=== PATIENT | male | born 1985 | race American Indian/Alaskan Native ===

== ENCOUNTER 2017-01-14 12:59 | Emergency (ER) | payer MEDICAID ==
[~2017-01-14] VITALS: Ht 182.9 cm; Wt 100.0 kg
[2017-01-14] MEDS ORDERED: ONDANSETRON 2MG/ML, 2ML IVPush ONE (14:00)
[2017-01-14] MEDS ORDERED: SODIUM CHLORIDE FLUSH 10ML SYR IVF ONE (14:00)
[2017-01-14] MEDS ORDERED: MORPHINE SULFATE 4 MG/ML, 1ML IVPush PRN (14:00)
[2017-01-14] MEDS ORDERED: KETOROLAC 30 MG/1 ML IVPush ONE (14:00)
[2017-01-14] MEDS ORDERED: SODIUM CHLORIDE 0.9% 1,000ML IVBOLUS ONE (14:00)
[2017-01-14] MEDS ORDERED: KETOROLAC 30 MG/1 ML ONE (14:01)
[2017-01-14] MEDS ORDERED: ONDANSETRON 2MG/ML, 2ML ONE (14:01)
[2017-01-14 14:27] LABS: HEMOGLOBIN 17.1 g/dL (13.7-18.0)
[2017-01-14 14:37] LABS: BLOOD UREA NITROGEN 9 mg/dL (7-18)
[2017-01-14 16:39] LABS: DAU SCREEN DISCLAIMER
[2017-01-14 17:00] VITALS: BP 113/71
== END 2017-01-14 18:46 | disposition home or self-care (01) ==
LOC: ED 13:43
DX: M13.172 Monoarthritis, not elsewhere classified, left ankle and foot (principal); F15.229 Other stimulant dependence with intoxication, unspecified; L03.211 Cellulitis of face; E11.9 Type 2 diabetes mellitus without complications; E87.1 Hypo-osmolality and hyponatremia; M10.9 Gout, unspecified
CPT/HCPCS: 36415; 80048; 80307; 82040; 82550; 82553; 83605; 85025; 87040; 96361; 96374; 96375; 99284; J1885; J2405; J7030

== ENCOUNTER 2017-03-16 09:49 | Emergency (ER) | payer MEDICAID ==
[~2017-03-16] VITALS: Ht 182.9 cm; Wt 107.0 kg
[~2017-03-16 09:49] MED LIST: DICL50TA4 PO
[2017-03-16] MEDS ORDERED: HYDROcodone/APAP 5/325 TABLET ONE ×2 (10:25→11:21)
[2017-03-16] MEDS ORDERED: KETOROLAC 30 MG/1 ML ONE (10:25)
[2017-03-16] MEDS ORDERED: HYDROcodone/APAP 5/325 TABLET PO ONE ×2 (10:30→11:30)
[2017-03-16] MEDS ORDERED: KETOROLAC 30 MG/1 ML IM ONE (10:30)
[2017-03-16] MEDS ORDERED: LIDOCAINE 1%, 20ML INFIL ONE (12:00)
[2017-03-16] MEDS ORDERED: LIDOCAINE 1%, 20ML ONE (12:07)
[2017-03-16 13:07] VITALS: BP 132/86
== END 2017-03-16 13:16 | disposition home or self-care (01) ==
LOC: ED 13:10
DX: M1A.0620 Idiopathic chronic gout, left knee, without tophus (tophi) (principal); M13.162 Monoarthritis, not elsewhere classified, left knee; E11.9 Type 2 diabetes mellitus without complications
CPT/HCPCS: 20610; 36415; 73564; 84550; 85025; 96372; 99285; J1885

== ENCOUNTER 2017-04-28 10:28 | Emergency (ER) | payer MEDICAID ==
[~2017-04-28] VITALS: Ht 182.9 cm; Wt 108.6 kg
[2017-04-28] MEDS ORDERED: DICLOFENAC 50 MG TABLET.DR PO ONE (11:12)
[2017-04-28] MEDS ORDERED: LIDOCAINE 1%, 20ML ONE (11:38)
[2017-04-28] MEDS ORDERED: LIDOCAINE 1%-EPI 1:100K, 20ML INFIL ONE (12:00)
[2017-04-28 12:45] VITALS: BP 139/82
== END 2017-04-28 12:54 | disposition home or self-care (01) ==
LOC: ED 11:31
DX: M10.9 Gout, unspecified (principal); M25.562 Pain in left knee; Z88.6 Allergy status to analgesic agent; Z88.2 Allergy status to sulfonamides
CPT/HCPCS: 20610

== ENCOUNTER 2017-05-10 23:58 | Emergency (ER) | payer MEDICAID ==
[~2017-05-10] VITALS: Ht 182.9 cm; Wt 107.4 kg
[2017-05-11] MEDS ORDERED: KETOROLAC 30 MG/1 ML IM ONE (00:30)
[2017-05-11] MEDS ORDERED: COLCHICINE 0.6 MG TABLET PO ONE ×2 (00:30→01:30)
[2017-05-11] MEDS ORDERED: KETOROLAC 30 MG/1 ML ONE (00:37)
[2017-05-11 02:10] VITALS: BP 123/80
== END 2017-05-11 03:00 | disposition home or self-care (01) ==
LOC: ED 23:59
DX: M13.0 Polyarthritis, unspecified (principal); M10.9 Gout, unspecified; M25.561 Pain in right knee; M25.562 Pain in left knee; M25.572 Pain in left ankle and joints of left foot; M25.571 Pain in right ankle and joints of right foot; E11.9 Type 2 diabetes mellitus without complications; E87.1 Hypo-osmolality and hyponatremia; Z88.1 Allergy status to other antibiotic agents; Z88.8 Allergy status to other drugs, medicaments and biological substances
CPT/HCPCS: 96372; 99283; J1885

== ENCOUNTER 2017-12-03 23:19 | Emergency (ER) | payer MEDICAID ==
[~2017-12-03] VITALS: Ht 182.9 cm; Wt 113.0 kg
[~2017-12-03 23:19] MED LIST changes: +COLC0.6T37 PO
[2017-12-03 23:21] VITALS: BP 158/115
[2017-12-04] MEDS ORDERED: LIDOCAINE-MPF 1%, 5ML INFIL ONE (00:30)
[2017-12-04] MEDS ORDERED: LIDOCAINE-MPF 1%, 2ML ONE (01:13)
[2017-12-04] MEDS ORDERED: BACITRACIN ZINC OINT 500U/GM, 0.9 GM ONE (02:19)
== END 2017-12-04 02:30 | disposition home or self-care (01) ==
LOC: ED 23:58
DX: S61.214A Laceration without foreign body of right ring finger without damage to nail, initial encounter (principal); W25.XXXA Contact with sharp glass, initial encounter; Y93.89 Activity, other specified; Y92.89 Other specified places as the place of occurrence of the external cause; Y99.8 Other external cause status
CPT/HCPCS: 12002; 29130; 99283

== ENCOUNTER 2018-07-03 14:35 | Emergency (ER) | payer MEDICAID ==
[~2018-07-03] VITALS: Ht 182.9 cm; Wt 106.3 kg
[2018-07-03 14:58] LABS: BASOPHILS # (AUTO) 0.05 x10^3/uL (0-0.1); BASOPHILS % (AUTO) 1 % (0-1); EOSINOPHILS # (AUTO) 0.16 x10^3/uL (0-0.4); EOSINOPHILS % (AUTO) 2 % (1-7); LYMPHOCYTES # (AUTO) 1.46 x10^3/uL (1-3.4); LYMPHOCYTES % (AUTO) 19 % (22-44); MD NO; MEAN CORPUSCULAR HEMOGLOBIN 30.6 pg (27.5-34.5); MEAN CORPUSCULAR HGB CONC 33.8 g/dL (33.2-36.2); MEAN CORPUSCULAR VOLUME 90.7 fL (81-97); MEAN PLATELET VOLUME 8.4 fL (7.4-10.4); MONOCYTES # (AUTO) 0.61 x10^3/uL (0.2-0.8); MONOCYTES % (AUTO) 8 % (2-9); NEUTROPHILS # (AUTO) 5.59 x10^3/uL (1.8-6.8); NEUTROPHILS % (AUTO) 71 % (42-75); PLATELET COUNT 243 x10^3/uL (130-400); RED BLOOD COUNT 5.62 x10^6/uL (4.38-5.82); RED CELL DISTRIBUTION WIDTH 13.2 % (9.4-14.8)
[2018-07-03] MEDS ORDERED: ONDANSETRON ODT 8 MG PO ONE (15:00)
[2018-07-03] MEDS ORDERED: SODIUM CHLORIDE 0.9% 1,000ML IVBOLUS ONE (15:00)
[2018-07-03 15:08] LABS: ALBUMIN 3.7 g/dL (3.4-5.0); ANION GAP 9 mmol/L (5-15); CALCIUM 9.2 mg/dL (8.5-10.1); CHLORIDE 104 mmol/L (98-107)
[2018-07-03 15:11] LABS: ALANINE AMINOTRANSFERASE 37 U/L (12-78); ALKALINE PHOSPHATASE 61 U/L (45-117); BILIRUBIN,TOTAL 0.3 mg/dL (0.2-1.0); CREATININE 1.03 mg/dL (0.7-1.3); TOTAL PROTEIN 8.3 g/dL (6.4-8.2)
[2018-07-03] MEDS ORDERED: ONDANSETRON ODT 8 MG ONE (15:16)
[2018-07-03 16:13] LABS: MICROSCOPIC NOT IND
[2018-07-03 16:19] LABS: CULTURE INDICATED? NO
[2018-07-03 17:21] VITALS: BP 119/88
== END 2018-07-03 17:25 | disposition home or self-care (01) ==
LOC: ED 16:26
DX: I80.02 Phlebitis and thrombophlebitis of superficial vessels of left lower extremity (principal); R11.2 Nausea with vomiting, unspecified; R19.7 Diarrhea, unspecified; R10.9 Unspecified abdominal pain; M10.9 Gout, unspecified; E11.9 Type 2 diabetes mellitus without complications; M19.90 Unspecified osteoarthritis, unspecified site
CPT/HCPCS: 36415; 80053; 81003; 83690; 85025; 93971; 96360; 99285; J7030; Q0162

== ENCOUNTER 2018-08-26 10:09 | Observation (INO) | payer MEDICAID ==
[~2018-08-26] VITALS: Ht 182.9 cm; Wt 108.8 kg
[2018-08-26] MEDS ORDERED: ALBUTEROL/IPRATROPIUM 2.5MG/0.5MG, 3 ML ONE ×2 (11:26→12:42)
[2018-08-26] MEDS ORDERED: ALBUTEROL/IPRATROPIUM 2.5MG/0.5MG, 3 ML NPPB ONE (11:30)
[2018-08-26 11:38] LABS: MEAN CORPUSCULAR HGB CONC 33.2 g/dL (33.2-36.2); MEAN CORPUSCULAR VOLUME 90.5 fL (81-97); MEAN PLATELET VOLUME 8.8 fL (7.4-10.4); PLATELET COUNT 283 x10^3/uL (130-400); RED BLOOD COUNT 5.09 x10^6/uL (4.38-5.82); RED CELL DISTRIBUTION WIDTH 12.9 % (9.4-14.8)
[2018-08-26 11:39] LABS: ALBUMIN 3.4 g/dL (3.4-5.0); ANION GAP 4 mmol/L (5-15); CALCIUM 8.7 mg/dL (8.5-10.1); CHLORIDE 106 mmol/L (98-107); CREATININE 0.96 mg/dL (0.7-1.3)
[2018-08-26 12:09] LABS: MD YES
[2018-08-26 12:12] LABS: BAND#(MANUAL) 0.27 x10^3/uL; BANDS%(MANUAL) 2 % (0-7); EOS#(MANUAL) 0.68 x10^3/uL (0.0-0.4); EOS% (MANUAL) 5 % (1-7); LYMPH#(MANUAL) 1.63 x10^3/uL (1-3.4); LYMPHS% (MANUAL) 12 % (22-44); MONOS#(MANUAL) 1.22 x10^3/uL (0.3-2.7); MONOS% (MANUAL) 9 % (2-9); SEG#(MANUAL) 9.79 x10^3/uL (1.8-6.8); SEGS% (MANUAL) 72 % (42-75)
[2018-08-26 12:13] LABS: <PLATELET ESTIMATE> ADEQUATE; <PLT MORPHOLOGY> NORMAL PLT MORPH; <RBC MORPHOLOGY> NORMAL
[2018-08-26] MEDS ORDERED: ALBUTEROL SULFATE 2.5 MG/3 ML NPPB SCH (12:30)
[2018-08-26] MEDS ORDERED: BENZONATATE 100 MG CAPSULE PO ONE (12:30)
[2018-08-26] MEDS ORDERED: CEFTRIAXONE PMX 1GM/50ML 50 ML ONE (12:50)
[2018-08-26] MEDS ORDERED: BENZONATATE 100 MG CAPSULE ONE (12:50)
[2018-08-26] MEDS ORDERED: AZITHROMYCIN 500 MG in SODIUM CHLORIDE 0.9% 250 ML IVPB ONE (13:00)
[2018-08-26] MEDS ORDERED: SODIUM CHLORIDE FLUSH 10ML SYR IVF ONE (13:00)
[2018-08-26] MEDS ORDERED: CEFTRIAXONE 1,000 MG in SODIUM CHLORIDE 0.9% 50 ML IVPB ONE (13:00)
[2018-08-26 14:49] VITALS: BP 135/81
[2018-08-26] MEDS ORDERED: ACETAMINOPHEN 325 MG TABLET PO PRN (15:00)
[2018-08-26] MEDS ORDERED: ONDANSETRON ODT 4 MG PO PRN (15:00)
[2018-08-26] MEDS ORDERED: ONDANSETRON 2MG/ML, 2ML IVPush PRN (15:00)
[2018-08-26] MEDS ORDERED: ENOXAPARIN 40 MG/0.4 ML SQ SCH (15:00)
[2018-08-26] MEDS ORDERED: NICOTINE 7 MG/24 HR PATCH.TD24 TD SCH (16:00)
[2018-08-26] MEDS: SODIUM CHLORIDE 0.9% 1,000 ML IV SCH (16:09)
[2018-08-26 17:38] LABS: RAPID INFLUENZA A Negative (Negative); RAPID INFLUENZA B Negative (Negative)
[2018-08-26 19:35] VITALS: BP 109/71
[2018-08-26] MEDS: ALBUTEROL SULFATE 2.5 MG/3 ML NPPB SCH (20:22)
[2018-08-26 20:25] LABS: COCAINE SCREEN, URINE Negative (Negative); METHADONE SCREEN, URINE Negative (Negative)
[2018-08-26 20:27] LABS: AMPHETAMINE SCREEN, URINE Positive (Negative); BARBITURATE SCREEN, URINE Negative (Negative); BENZODIAZEPINE SCREEN, URINE Negative (Negative); CANNABINOID SCREEN, URINE Negative (Negative); OPIATE SCREEN, URINE Negative (Negative)
[2018-08-26] MEDS: DOXYCYCLINE 100 MG in DEXTROSE 5% 250 ML IV SCH (20:52)
[2018-08-27 02:38] VITALS: BP 116/75
[2018-08-27] MEDS: SODIUM CHLORIDE 0.9% 1,000 ML IV SCH (04:50)
[2018-08-27 05:36] LABS: BASOPHILS # (AUTO) 0.11 x10^3/uL (0-0.1); BASOPHILS % (AUTO) 1 % (0-1); EOSINOPHILS # (AUTO) 0.04 x10^3/uL (0-0.4); EOSINOPHILS % (AUTO) 0 % (1-7); LYMPHOCYTES # (AUTO) 1.99 x10^3/uL (1-3.4); LYMPHOCYTES % (AUTO) 16 % (22-44); MD NO; MEAN CORPUSCULAR HEMOGLOBIN 30.6 pg (27.5-34.5); MEAN CORPUSCULAR HGB CONC 34.1 g/dL (33.2-36.2); MEAN CORPUSCULAR VOLUME 89.7 fL (81-97); MEAN PLATELET VOLUME 8.8 fL (7.4-10.4); MONOCYTES # (AUTO) 0.67 x10^3/uL (0.2-0.8); MONOCYTES % (AUTO) 5 % (2-9); NEUTROPHILS # (AUTO) 9.78 x10^3/uL (1.8-6.8); NEUTROPHILS % (AUTO) 78 % (42-75); PLATELET COUNT 296 x10^3/uL (130-400); RED BLOOD COUNT 4.58 x10^6/uL (4.38-5.82); RED CELL DISTRIBUTION WIDTH 12.7 % (9.4-14.8)
[2018-08-27 05:46] LABS: ALANINE AMINOTRANSFERASE 48 U/L (12-78); ALBUMIN 2.9 g/dL (3.4-5.0); ANION GAP 7 mmol/L (5-15); CALCIUM 8.3 mg/dL (8.5-10.1); CHLORIDE 105 mmol/L (98-107); CREATININE 0.84 mg/dL (0.7-1.3)
[2018-08-27 05:49] LABS: ALKALINE PHOSPHATASE 65 U/L (45-117); BILIRUBIN,TOTAL 0.3 mg/dL (0.2-1.0); TOTAL PROTEIN 6.8 g/dL (6.4-8.2)
[2018-08-27 06:57] VITALS: BP 106/62
[2018-08-27] MEDS: DOXYCYCLINE 100 MG in DEXTROSE 5% 250 ML IV SCH (08:20)
[2018-08-27] MEDS: ALBUTEROL SULFATE 2.5 MG/3 ML NPPB SCH (09:55)
[2018-08-27] MEDS ORDERED: ALBU18HF INH (11:52)
[2018-08-27] MEDS ORDERED: DOXY100T10 PO (11:52)
[2018-08-27 12:17] VITALS: BP 113/75
[2018-08-27] MEDS ORDERED: CEFTRIAXONE PMX 1GM/50ML 50 ML IV SCH (12:30)
== END 2018-08-27 13:12 | disposition home or self-care (01) ==
LOC: ED 11:10 → EDIP 13:49 → INTOOBSV 13:49 → 3NE 14:42
PROVIDERS: ADMIT Hospitalist; ATTEND Hospitalist
DX: J96.01 Acute respiratory failure with hypoxia (principal); J15.9 Unspecified bacterial pneumonia; J20.9 Acute bronchitis, unspecified; D72.829 Elevated white blood cell count, unspecified; J98.11 Atelectasis; E11.9 Type 2 diabetes mellitus without complications; F10.10 Alcohol abuse, uncomplicated; F15.10 Other stimulant abuse, uncomplicated; M10.9 Gout, unspecified; M19.90 Unspecified osteoarthritis, unspecified site; Z23 Encounter for immunization; Z86.72 Personal history of thrombophlebitis; Z79.899 Other long term (current) drug therapy
CPT/HCPCS: 36415; 71046; 80048; 80053; 80307; 82040; 83605; 84145; 85025; 86704; 86706; 86708; 86803; 87040; 87070; 87081; 87147; 87205; 87340; 87400; 87806; 87880; 90471; 90656; 93005; 94640; 96365; 96366; 96367; 96368; 96372; 99285; G0378; J0456; J0696; J1650; J7030; J7050; J7060; J7512; J7613; J7620; G0475

== ENCOUNTER 2018-10-13 15:49 | Emergency (ER) | payer MEDICAID ==
[~2018-10-13] VITALS: Ht 182.9 cm; Wt 115.5 kg
[~2018-10-13 15:49] MED LIST changes: +ALBU18HF INH; +DOXY100T10 PO
[2018-10-13 16:27] VITALS: BP 152/100
[2018-10-13] MEDS ORDERED: INDOMETHACIN 50 MG CAPSULE PO ONE (17:00)
[2018-10-13] MEDS ORDERED: COLCHICINE 0.6 MG TABLET ONE (17:42)
[2018-10-13] MEDS ORDERED: COLCHICINE 0.6 MG TABLET PO ONE (18:00)
== END 2018-10-13 17:48 | disposition home or self-care (01) ==
LOC: ED 17:06
DX: M13.0 Polyarthritis, unspecified (principal); M10.041 Idiopathic gout, right hand; E11.9 Type 2 diabetes mellitus without complications; Z88.5 Allergy status to narcotic agent; Z88.2 Allergy status to sulfonamides; Z91.018 Allergy to other foods
CPT/HCPCS: 99283